=== PATIENT | female | born 1980 | race Caucasian/White ===

== ENCOUNTER → 2022-05-14 | Outpatient (CLI) | payer BC ==
[2022-05-14 15:27] VITALS: BP 147/93; PULSE 108; TEMP 98.1; BMI 43.9
--- NOTE | 2022-05-14 15:59 | P.HPBAR ---
Bariatric H&P - History & Physicial H&P Date: 05/14/22 History & Physicial: Visit/CC: new patient Patient initial contact: Initial weight: Initial weight in pounds: Height: 5 ft 6 in Initial BMI: Last weight: Current weight: 123.377 kg Current weight in pounds: 272.00 Current BMI: 43.9 [place] body weight (based on NIH guidelines): 58.967 kg Excess body weight loss: The patient is a 42 year-old F who presents for Bariatric Assessment. Patient presents for first time. Reports strong family history of morbid obesity and all her family. Mother had adjustable gastric band. She reports bilateral knee pain. Also, patient had pre-existing attempts weight loss unsuccessful. Reports constipation with protein shakes. Additionally, she does not have her gallbladder. She has severe gastroesophageal reflux disease and take medications daily. She is a sleeve gastrectomy. Recommend full bariatric workup. Past Medical History Past Medical History: Hyperlipidemia, Hypertension, Mitral Valve Prolapse (MVP) History of Any Multi-Drug Resistant Organisms: None Reported Past Surgical History: Cholecystectomy Additional Past Surgical History / Comment(s): D&C Past Anesthesia/Blood Transfusion Reactions: No Reported Reaction Past Psychological History: Anxiety Smoking Status: Former smoker Past Alcohol Use History: Rare Past Drug Use History: None Reported Surgical - Exam Vital Signs Temp Pulse BP 98.1 F 108 H 147/93 05/14/22 15:21 05/14/22 15:21 05/14/22 15:21 Bariatric Checklist Checklist: Plan: Checklist: EGD: 1. Hiatal hernia: 2. H. Pylori: HgbA1c: Vitamin D: Smoking: Primary care physician referral: Екатерина Montilla Psychiatry clearance: Cardiology clearance: Sleep study: Diet journal: VTE risk score: VTE risk level: Rehab needs at discharge:
[2022-05-14 23:02] LABS: HCT 44.7 % (37.2-46.3); HGB 15.2 g/dL (12.0-15.0); MCH 30.9 pg (27.0-32.0); MCV 90.9 fL (80.0-97.0); Mean Platelet Volume 10.2 fL (9.5-12.2); NRBC Per 100 WBC 0 /100 WBCS (0.0-0.0); Platelet Count 319 X 10*3/uL (140-440); RBC 4.92 X 10*6/uL (4.10-5.20); RDW 12.4 % (11.5-14.5); WBC 10.02 X 10*3/uL (4.50-10.00)
[2022-05-14 23:50] LABS: Chol/HDL Ratio 4.16 Ratio; LDL Cholesterol,Calculated 80.3 mg/dL (0.0-131.0)
[2022-05-15 00:26] LABS: % Iron Saturation 26.67 (12.00-45.00); ALT 31 U/L (8-44); AST 18 U/L (13-35); African American GFR (CKD) 112.2 (60.0-200.0); Albumin 4.6 g/dL (3.8-4.9); Alkaline Phosphatase 70 U/L (41-126); BUN/Creat Ratio 15.85 Ratio (12.00-20.00); Blood Urea Nitrogen 11.9 mg/dL (9.0-27.0); Calcium 9.5 mg/dL (8.7-10.3); Carbon Dioxide 22.9 mmol/L (20.0-27.5); Chloride 104 mmol/L (96-109); Glucose 106 mg/dL (70-110); Iron 86 ug/dL (50-170); Magnesium 2.2 mg/dL (1.5-2.4); Non-African American GFR(CKD) 96.8 (60.0-200.0); Phosphorus 2.8 mg/dL (2.4-5.1); Potassium 4.1 mmol/L (3.5-5.5); Sodium 139 mmol/L (135-145); Total Iron Binding Capacity 321 ug/dL (228-460); Total Protein 7.6 g/dL (6.2-8.2)
[2022-05-15 13:04] LABS: Zinc, Serum 70 ug/dL (60-130)
[2022-05-16 11:36] LABS: Vit B1(Thiamine) 85 ug/L (38-122)
[2022-05-16 11:53] LABS: Vitamin A 66 ug/dL (38-106)
== END ==
LOC: BARWHC3 14:23
PROVIDERS: ATTEND Surgery Plastic and Reconstructive Surgery
DX: E66.01 Morbid (severe) obesity due to excess calories (principal); E78.5 Hyperlipidemia, unspecified; I10 Essential (primary) hypertension; E89.1 Postprocedural hypoinsulinemia; D50.8 Other iron deficiency anemias; D50.9 Iron deficiency anemia, unspecified; E44.0 Moderate protein-calorie malnutrition; E44.1 Mild protein-calorie malnutrition; E45 Retarded development following protein-calorie malnutrition; E46 Unspecified protein-calorie malnutrition; E55.9 Vitamin D deficiency, unspecified; K74.1 Hepatic sclerosis; N19 Unspecified kidney failure; T56.894A Toxic effect of other metals, undetermined, initial encounter; I25.2 Old myocardial infarction; Z71.51 Drug abuse counseling and surveillance of drug abuser; Z87.891 Personal history of nicotine dependence; Z68.41 Body mass index [BMI] 40.0-44.9, adult
CPT/HCPCS: 84255; 84134; 84425; 80061; 80053; 82607; 82728; 82525; 82746; 83540; 83550; 83735; 84100; 84443; 84590; 84630; 85027; 82306; 80323; 83970; 83036; 80307; 99202; 93005; G0482

== ENCOUNTER → 2022-07-16 | Outpatient (CLI) | payer BC ==
[2022-07-16 16:41] VITALS: BP 140/87; PULSE 68; RESP 12; TEMP 98.7; BMI 44.4
--- NOTE | 2022-09-28 19:45 | P.BASOAP ---
Subjective Progress Note Date: 07/16/22 DATE OF SERVICE: 07/16/2022 CHIEF COMPLAINT: Morbid obesity HISTORY OF PRESENT ILLNESS: Brinda Zamudio is a 42-year-old female who comes with lifelong morbid obesity. She is undergoimg medically supervised weight loss. She has comorbidities including osteoarthritis, gastroesophageal reflux disease, and hypertensive heart disease. She completed upper endoscopy. At height of 5 feet 6 inches, her ideal body weight is 154 pounds. She comes in 275 pounds. Her body mass index highest is 44.5. She is 121 pounds overweight. PAST MEDICAL HISTORY: 1. Morbid obesity due to excess calories 2. Body mass index of 44.5 3. Osteoarthritis of the knees. 4. Osteoarthritis of the hips. 5. Osteoarthritis of the lower back. 6. Hyperlipidemia 7. Generalized anxiety disorder 8. Mitral Valve Prolapse 9. Depressive disorder 10. Hypertensive heart disease. 11. Gastroesophageal reflux disease PAST SURGICAL HISTORY: 1. Cholecystectomy 2. D&C HOME MEDICATIONS: Home Medications Medication Instructions Recorded Confirmed Loratadine [Claritin] 10 mg PO DAILY 05/14/22 09/24/22 Verapamil HCl 240 mg PO QAM 05/14/22 09/24/22 lisinopriL [Zestril] 20 mg PO QAM 05/14/22 09/24/22 Previous Rx's Medication Instructions Recorded Acetaminophen Tab [Tylenol] 1,000 mg PO Q6HR PRN #30 tablet 09/02/22 Omeprazole [PriLOSEC] 40 mg PO DAILY #30 cap 09/02/22 Ondansetron Odt [Zofran Odt] 4 mg PO Q8HR PRN #9 tab 09/02/22 Simethicone 40 mg/0.6 ml Drops 40 mg PO PCHS PRN #30 ml 09/02/22 [Mylicon Drops] bisacodyL [Dulcolax] 5 mg PO DAILY PRN #10 tab 09/02/22 SOCIAL HISTORY: No past tobacco use. FAMILY HISTORY: No family history of ulcerative colitis disease or Crohn's disease. Family history of morbid obesity. No lupus in the family. No reports of stomach or esophageal cancer. REVIEW OF ORGAN SYSTEMS: CONSTITUTIONAL: At height of 5 feet 6 inches, her ideal body weight is 154 pounds. She comes in 275 pounds. Her body mass index highest is 44.5. She is 121 pounds overweight. HEENT: Denies any active troubles with vision or hearing. No troubles with swallowing. ENDOCRINE: No diabetes. Denies hypothyroidism. CARDIOVASCULAR: No reports of palpitations or heart attacks or chest pain. Has hypertensive heart disease. RESPIRATORY: Has daytime somnolence. GI: Denies any bright red blood per rectum. No diarrhea. Has gastroesophageal reflux disease. MUSCULOSKELETAL: Has lower back pain and joint pain. Has osteoarthritis of the knees and hips. NEURO: No headaches. No seizure disorders. PSYCH: Has depression. No suicidal ideation. Has anxiety. RHEUMATOLOGIC: No lupus. No rheumatoid arthritis. HEMATOLOGIC: Denies any abnormal bleeding or bruising. No personal history of DVTs. SKIN: No rash. No skin cancer. PHYSICAL EXAM: VITAL SIGNS: Height 5 foot 6 inches, weight 275 pounds. BMI 44.5 Vital Signs Temp 98.7 F 07/16/22 16:36 Pulse 68 07/16/22 16:36 Resp 12 07/16/22 16:36 BP 140/87 07/16/22 16:36 Pulse Ox FiO2 GENERAL: Well-developed in no acute distress. HEENT: No scleral icterus. Extraocular movements grossly intact. Hears conversational speech. No nasal drainage. NECK: Supple without lymphadenopathy. CHEST: Nonlabored respirations with equal bilateral excursions. CARDIOVASCULAR: Regular rate and regular rhythm. Distal 2+ pulses. ABDOMEN: Obese, soft, nontender, nondistended. MUSCULOSKELETAL: No clubbing, cyanosis. Gross strength 5/5 distal lower extremities. NEURO: No focal or lateralizing signs. Cranial nerves 2 through 12 grossly within normal limits. PSYCH: Appropriate affect. Alert and oriented to person, place and time. SKIN: Good skin turgor. Well perfused. LABS: Reviewed. WBC elevated, leukocytosis. Triglycerides elevated. Urine drug screen negative. EKG: Abnormal for left axis deviation EGD FINDINGS: Squamocolumnar junction 35 cm from the incisors. Diaphragmatic hiatus at 37 cm. Hiatal hernia, 2 cm Hill grade 3 lower esophageal valve. LA grade B erosive esophagitis. Biopsies obtained of duodenum Chronic gastritis with biopsies obtained Moderate gastric polyps Final Pathologic Diagnosis A. DUODENUM, BIOPSY: Benign small bowel mucosa with intact villous architecture. Negative for histopathologic abnormality. B. GASTRIC ANTRUM, BIOPSY: Mild chronic gastritis. Helicobacter pylori organisms are not identified on routine H+E sections. ASSESSMENT: 1. Morbid obesity due to excess calories 2. Body mass index of 44.5 3. Osteoarthritis of the knees. 4. Osteoarthritis of the hips. 5. Osteoarthritis of the lower back. 6. Hyperlipidemia 7. Generalized anxiety disorder 8. Mitral Valve Prolapse 9. Depressive disorder 10. Hypertensive heart disease. 11. Gastroesophageal reflux disease 12. Gastric polyps 13. Diaphragmatic hiatal hernia 14. Leukocytosis 15. Hypertriglyceridemia 16. Abnormal EKG 17. Chronic gastritis PLAN: 1. She has symptomatic hiatal hernia, recommend hiatal hernia repair for gastroesophageal reflux disease prior bariatric procedure. 2. Recommend cardiac risk assessment due to hypertensive heart disease and abnormal EKG, mitral valve prolapse 3. Recommend repeat CBC for leukocytosis 4. Omeprazole for gastroesophageal reflux disease. 5. She is elevated risk of complications due to her co-morbidities. Objective - Vital Signs Vital signs: Vital Signs Temp 98.7 F 07/16/22 16:36 Pulse 68 07/16/22 16:36 Resp 12 07/16/22 16:36 BP 140/87 07/16/22 16:36 Pulse Ox FiO2 Assessment/Plan Plan: Date: 07/16/22 Initial Weight: Initial BMI: Current Weight: 124.919 kg Current BMI: 44.4 Type of Surgery: Total Volume in Band: Previous Volume: Volume Removed: Volume Added: Band Size:
== END ==
LOC: BARWHC3 15:51
PROVIDERS: ATTEND Surgery Plastic and Reconstructive Surgery
DX: E66.01 Morbid (severe) obesity due to excess calories (principal); Z68.41 Body mass index [BMI] 40.0-44.9, adult; K21.9 Gastro-esophageal reflux disease without esophagitis; I11.9 Hypertensive heart disease without heart failure; F32.A Depression, unspecified; F41.1 Generalized anxiety disorder; E78.5 Hyperlipidemia, unspecified; M17.9 Osteoarthritis of knee, unspecified; M16.9 Osteoarthritis of hip, unspecified; I34.9 Nonrheumatic mitral valve disorder, unspecified; K31.7 Polyp of stomach and duodenum; K44.9 Diaphragmatic hernia without obstruction or gangrene; E78.1 Pure hyperglyceridemia; R94.31 Abnormal electrocardiogram [ECG] [EKG]; K29.70 Gastritis, unspecified, without bleeding; Z88.1 Allergy status to other antibiotic agents; Z88.0 Allergy status to penicillin; Z88.8 Allergy status to other drugs, medicaments and biological substances
CPT/HCPCS: 99211

== ENCOUNTER → 2022-08-27 | Outpatient (CLI) | payer BC ==
[2022-08-28 02:14] LABS: Basophils # (A) 0.04 X 10*3/uL (0.00-0.10); Basophils % (A) 0.5 %; Eosinophils # (A) 0.29 X 10*3/uL (0.04-0.35); Eosinophils % (A) 3.4 %; HCT 40.2 % (37.2-46.3); HGB 13.8 d/dL (12.0-15.0); Lymphocytes # (A) 2.24 X 10*3/uL (0.90-5.00); Lymphocytes % (A) 26.5 %; MCH 31.4 pg (27.0-32.0); MCHC 34.3 d/dL (32.0-37.0); MCV 91.4 FL (80.0-97.0); Mean Platelet Volume 10.6 FL (9.5-12.2); Monocytes # (A) 0.44 X 10*3/uL (0.20-1.00); Monocytes % (A) 5.2 %; NRBC Per 100 WBC 0 X 10*3/uL (0.00-0.01); Neutrophils # (A) 5.43 X 10*3/uL (1.80-7.70); Neutrophils % (A) 64.2 %; Platelet Count 326 X 10*3/uL (140-440); RDW 12.1 % (11.5-14.5); WBC 8.46 X 10*3/uL (4.50-10.00)
[2022-08-28 03:05] LABS: ALT 36 U/L (8-44); AST 21 U/L (13-35); Albumin 4.8 d/dL (3.8-4.9); Albumin/Globulin Ratio 1.66 Ratio (1.60-3.17); Alkaline Phosphatase 55 U/L (41-126); BUN/Creat Ratio 23.62 Ratio (12.00-20.00); Blood Urea Nitrogen 18.9 mg/dL (9.0-27.0); Carbon Dioxide 21.3 mmol/L (21.6-31.8); Chloride 102 mmol/L (96-109); Globulin 2.9 d/dL (1.6-3.3); Glucose 72 mg/dL (70-110); Potassium 4.8 mmol/L (3.5-5.5); Sodium 138 mmol/L (135-145); Total Bilirubin 0.7 mg/dL (0.3-1.2); Total Protein 7.7 d/dL (6.2-8.2)
== END | disposition home or self-care (01) ==
LOC: LABPAT 16:04
PROVIDERS: ATTEND Surgery Plastic and Reconstructive Surgery
DX: Z01.812 Encounter for preprocedural laboratory examination (principal)
CPT/HCPCS: 36415; 80053; 85025; 93005

== ENCOUNTER 2022-09-01 07:50 | Observation (INO) | payer BC ==
[~2022-09-01 07:50] MED LIST: CHLORHEXIDINE GLUCONATE 15 ML CUP MUCOUS MEM PRN; PANTOPRAZOLE 40 MG/10 ML VIAL IVP PRN; ceFAZolin 3 GM in SODIUM CHLORIDE 0.9% 100 ML IVPB PRN
[2022-09-01] MEDS ORDERED: SCOPOLAMINE 1 MG/72 HR PATCH TRANSDERM ONE (08:19)
[2022-09-01] MEDS ORDERED: DEXAMETHASONE SOD PHOSPHATE 4 MG/ML 1 ML VIAL IV ONE (08:19)
[2022-09-01] MEDS ORDERED: ONDANSETRON 4 MG/2 ML VIAL IVP ONE (08:19)
[2022-09-01] MEDS ORDERED: HYDROmorphone 0.5 MG/0.5 ML SYRINGE IVP PRN (08:19)
[2022-09-01] MEDS ORDERED: MIDAZOLAM 2 MG/2 ML VIAL IV PRN (08:19)
--- NOTE | 2022-09-01 08:29 | P.GSHP ---
History of Present Illness H&P Date: 09/01/22 CHIEF COMPLAINT: Paraesophageal hiatal hernia with gastroesophageal reflux disease. HISTORY OF PRESENT ILLNESS: The patient is a 42-year-old female who presents with symptomatic paraesophageal hiatal hernia over one year with gastroesophageal reflux disease. She has completed upper endoscopy workup. Now she presents for surgical intervention. PAST MEDICAL HISTORY: Please see list. PAST SURGICAL HISTORY: Please see list. MEDICATIONS: Please see list. ALLERGIES: Please see list. SOCIAL HISTORY: No illicit drug use FAMILY HISTORY: No reports of Crohn disease or ulcerative colitis. REVIEW OF ORGAN SYSTEMS: CONSTITUTIONAL: No reports of fevers or chills. GI: Denies any blood in stools or constipation. PHYSICAL EXAM: VITAL SIGNS: Stable GENERAL: Well-developed pleasant and in no acute distress. HEENT: No scleral icterus. Extraocular movements grossly intact. Moist buccal mucosa. NECK: Supple without lymphadenopathy. CHEST: Unlabored respirations. Equal bilateral excursions. CARDIOVASCULAR: Regular rate and rhythm. Distal 2+ pulses. ABDOMEN: Soft, nondistended. No peritoneal signs. MUSCULOSKELETAL: No clubbing, cyanosis, or edema. SKIN: Well-perfused. Good skin turgor. REPORTS: Upper endoscopy demonstrates paraesophageal hiatal hernia BARIUM SWALLOW: Images reviewed demonstrating paraesophageal hiatal hernia. This is my independent interpretation. REPORTS: Cardiology risk assessment obtained. Please see chart. ASSESSMENT: 1. Diaphragmatic paraesophageal hiatal hernia with severe gastroesophageal reflux disease. PLAN: 1. Recommend proceeding with a robotic paraesophageal hiatal hernia with possible mesh. 2. Benefits and risks of surgical intervention was discussed including possibility of open technique. 3. Inpatient hospitalization recommended of 2 nights 4. DVT prophylaxis. 5. Antibiotic prophylaxis. 6. She has also completed a very low caloric high-protein diet to address underlying hepatomegaly. 7. Non narcotic pain management including abdominal wall block described 8. Blood sugar glucose described. 9. Weight loss management described. Past Medical History Past Medical History: GERD/Reflux, Hyperlipidemia, Hypertension, Mitral Valve Prolapse (MVP) Additional Past Medical History / Comment(s): hiatal hernia,gastritis,gastric polyps History of Any Multi-Drug Resistant Organisms: None Reported Past Surgical History: Cholecystectomy Additional Past Surgical History / Comment(s): D&C Past Anesthesia/Blood Transfusion Reactions: No Reported Reaction Additional Past Anesthesia/Blood Transfusion Reaction / Comment(s): no hx blood transfusion Smoking Status: Former smoker - Past Family History Mother Family Medical History: No Reported History Medications and Allergies Home Medications Medication Instructions Recorded Confirmed Type Atorvastatin [Lipitor] 20 mg PO DAILY 05/14/22 08/22/22 History Escitalopram [Lexapro] 20 mg PO QAM 05/14/22 08/22/22 History Loratadine [Claritin] 10 mg PO DAILY 05/14/22 08/22/22 History Omeprazole 20 mg PO QAM 05/14/22 08/22/22 History Verapamil HCl 240 mg PO QAM 05/14/22 08/22/22 History lisinopriL [Zestril] 20 mg PO QAM 05/14/22 08/22/22 History Cholecalciferol [Vitamin D3 (25 250 mcg PO DAILY #0 06/24/22 08/22/22 History Mcg = 1000 Iu)] Allergies Allergy/AdvReac Type Severity Reaction Status Date / Time azithromycin [From Zithromax] Allergy Rash/Hives Verified 08/22/22 15:25 erythromycin base Allergy Rash/Hives Verified 08/22/22 15:25 Penicillins Allergy Rash/Hives Verified 08/22/22 15:25 ranitidine [From Zantac] Allergy Rash/Hives Verified 08/22/22 15:25
[2022-09-01] MEDS ORDERED: HEPARIN SODIUM,PORCINE/PF 5,000 UNIT/0.5 ML SYRINGE SQ PRN (08:30)
[2022-09-01] MEDS ORDERED: ACETAMINOPHEN TAB 500 MG TAB PO STA (08:30)
[2022-09-01] MEDS ORDERED: LACTATED RINGERS 1,000 ML IV ONE ×2 (08:34→12:57)
[2022-09-01 08:58] LABS: Basophils % (A) 0 %; Eosinophils # (A) 0.2 k/uL (0-0.7); Eosinophils % (A) 4 %; HCT 39.9 % (34.0-46.0); HGB 14.2 gm/dL (11.4-16.0); Lymphocytes # (A) 1.4 k/uL (1.0-4.8); Lymphocytes % (A) 24 %; MCH 31.2 pg (25.0-35.0); MCHC 35.5 g/dL (31.0-37.0); MCV 87.9 fL (80.0-100.0); Mean Platelet Volume 8.2; Monocytes # (A) 0.3 k/uL (0-1.0); Monocytes % (A) 4 %; Neutrophils # (A) 3.8 k/uL (1.3-7.7); Neutrophils % (A) 66 %; Platelet Count 289 k/uL (150-450); RBC 4.53 m/uL (3.80-5.40); RDW 12.5 % (11.5-15.5); WBC 5.7 k/uL (3.8-10.6)
[2022-09-01 09:15] LABS: ALT 46 U/L (4-34); AST 36 U/L (14-36); African American GFR (CKD) >90 (>60 ml/min/1.73 sqM); Albumin 4.6 g/dL (3.5-5.0); Alkaline Phosphatase 58 U/L (38-126); Anion Gap 11 mmol/L; Blood Urea Nitrogen 13 mg/dL (7-17); Carbon Dioxide 23 mmol/L (22-30); Chloride 107 mmol/L (98-107); Glucose 87 mg/dL (74-99); Non-African American GFR(CKD) >90 (>60 ml/min/1.73 sqM); Sodium 141 mmol/L (137-145); Total Protein 8.1 g/dL (6.3-8.2)
[2022-09-01] MEDS ORDERED: ROCURONIUM 10 MG/ML (5 ML VIAL) IV ONE (11:05)
[2022-09-01] MEDS ORDERED: HYDROmorphone (PF) 1 MG/ML ONE (11:05)
[2022-09-01] MEDS ORDERED: GLYCOPYRROLATE 0.2 MG/ML 2 ML VIAL ONE (11:05)
[2022-09-01] MEDS ORDERED: fentaNYL (PF) 50 MCG/ML 2 ML AMP ONE (11:05)
[2022-09-01] MEDS ORDERED: NEOSTIGMINE 1 MG/ML 10 ML VIAL ONE (11:05)
[2022-09-01] MEDS ORDERED: SUCCINYLCHOLINE CHLORIDE 200 MG/10 ML VIAL IV ONE (11:05)
[2022-09-01] MEDS ORDERED: MIDAZOLAM 2 MG/2 ML VIAL ONE (11:05)
[2022-09-01] MEDS ORDERED: KETOROLAC 15 MG/ML 1 ML VIAL ONE (11:05)
[2022-09-01] MEDS ORDERED: LIDOCAINE 2% INJ 20 MG/ML (2 ML VIAL) ONE (11:05)
[2022-09-01] MEDS ORDERED: KETAMINE 10 MG/ML 20 ML VIAL ONE (11:05)
[2022-09-01] MEDS ORDERED: PROPOFOL 10 MG/ML 20 ML VIAL IV ONE (11:05)
[2022-09-01] MEDS ORDERED: BUPIVACAINE (PF) 0.25% 30 ML VIAL SQ ONE (11:41)
[2022-09-01] MEDS ORDERED: HYDROmorphone 1 MG/ML 1 ML SYRINGE IVP PRN (15:32)
[2022-09-01] MEDS ORDERED: NALOXONE 0.4 MG/ML 1 ML VIAL IV PRN (15:32)
--- NOTE | 2022-09-01 15:41 | P.OP ---
Date of Procedure: 09/01/22 Description of Procedure: SURGEON: TANVI HOLLEY MD PREOPERATIVE DIAGNOSES: 1. Symptomatic paraesophageal diaphragmatic hiatal hernia. 2. Gastroesophageal reflux disease. 3. Hypertensive heart disease 4. Generalized anxiety disorder POSTOPERATIVE DIAGNOSES: 1. Paraesophageal midline diaphragmatic hernia, 4 cm, with incarceration. 2. Gastroesophageal reflux disease. 3. Hypertensive heart disease 4. Generalized anxiety disorder OPERATION: 1. Robotic-assisted da Tay Xi laparoscopic repair of incarcerated paraesophageal hiatal hernia, 4 x 3 cm, with [place] Biopatch A 8 x 8 cm. 2. Intraoperative esophagogastroduodenoscopy 3. Placement of 56-Bengali bougie for esophageal dysmotility ANESTHESIA: General with local anesthetic. ESTIMATED BLOOD LOSS: 5 mL SPECIMENS REMOVED: None COMPLICATIONS: None. Condition: stable Disposition: floor FINDINGS: 1. Midline incarcerated paraesophageal hiatal hernia 4 x 3 cm 2. Intraoperative upper endoscopy confirms complete closure of hiatal hernia from Hill grade 3 to Hill grade 1 3. Intraesophageal length over 2 cm INDICATIONS: The patient is a 42-year-old female who presents with gastroesophageal reflux disease poorly controlled despite medications, and a symptomatic diaphragmatic hiatal hernia. Preoperative workup including upper endoscopy demonstrated a sliding hiatal hernia. The patient completed an esophageal manometry. Given the severity of symptoms, the patient had elected for surgical intervention. Benefits and risks including bleeding, infection, recurrence, dysphagia, injury to the lung, need for further surgery was described at length. Informed consent was obtained. DESCRIPTION: The patient was brought into the operating room and placed in supine position. Preoperatively the patient had received heparin subcutaneously for DVT prophylaxis. After general induction, the abdomen was prepped and draped in standard sterile fashion. The patient had previously voided prior to coming to the operating room. Ioban draping was placed along the abdomen. A timeout protocol was confirmed with the surgical team, for which the patient's name, procedure to be performed including DVT prophylaxis with bilateral SCDs, and preoperative antibiotics were also confirmed. A robotic da Tay Xi system was prepped and primed. At 12 cm from the xiphoid to just below the umbilicus, proposed port sites were marked with indelible marker along the left axillary line, left mid-clavicular line with each ports were marked 10 cm from each other. A 5 mm 0 degrees laparoscopic trocar entry was performed along the left upper quadrant. The abdomen was insufflated to 15 mmHg pressure was tolerated well. Diagnostic laparoscopy demonstrated no injury to bowel, viscera, or mesentery. No injury had occurred to the small bowel or viscera. The liver was smooth consistent with two-week high-protein low-carb diet. Previous trochar sites from cholecystectomy were used. Next, one 8 mm robotic port was placed along the right upper abdomen. An 8-mm port was were placed along the right lateral lateral abdominal wall. The camera 8-mm port was maintained along the epigastrium. Another 12 mm port was placed along the left upper abdominal wall after exchanging the 5 mm port. Please note that the ports were placed at least 20 cm away from the target anatomy. Care was taken to check that each robotic arm were safely away from collision with the bed or the patient. At the epigastrium, a medium sized Stu liver retractor was placed under direct visualization with the Iron Deaf/Hard Of Hearing Specialist placed under the right shoulder of the patient. All robotic arms were used. The patient was repositioned in reverse Trendelenburg position at 21-degrees after lowering the bed. The robot was docked above the right side of the patient. Using a grasper for arm 3, a grasper for arm 1, including vessel sealer for arm 2, the robotic system was docked and primed as described. Instruments were interchanged by the health assistant. I had sat at the console. The gastrohepatic ligament was cleaved using a vessel sealer. Next, the phrenoesophageal ligament was mobilized and the distal esophagus was mobilized circumferentially. The left and right crura was identified. Circumferentially, the hernia sac was excised and brought into the peritoneal cavity. Moderate dissection into the mediastinum was performed to release the esophagus into the abdominal cavity. The paraesophageal hiatal hernia sac was also incised and divided from the esophagus. Care was taken to avoid any gastrotomy. The measured defect was consistent with 3 cm axial length and 3 cm in width. After dissection, the distal esophagus of 2+ cm was brought into the abdominal cavity. Once the hiatus and crura was dissected, 2-0 VLOC nonabsorbable suture was placed to reapproximate the diaphragmatic hiatus posteriorly. To buttress the repair, a [place] Biopatch A was prepared along the back table and cut in half of a post-hole fashion as to reinforce the repair as an underlay. The mesh was placed along the crural repair and tagged using horizontal mattress sutures using 2-0 VLOC. I went to the head of the bed to perform intraoperative esophagogastroduodenoscopy and placement of a 56Fr bougie. The bougie was passed along the posterior oropharynx into the stomach to address pre-existing esophageal dysmotility for 2 minutes then removed. An Olympus gastroscope was passed through posterior oropharynx. Retroflexion of the scope confirmed a Hill grade 1 lower esophageal valve. The stomach had been desufflated. No evidence of leaks were found of the esophagus or stomach. The GI tract with desufflated This concluded the endoscopic portion of the case. The robot was undocked from the patient. I re-scrubbed into the case. All instruments and pneumoperitoneum and specimens were evacuated from the abdominal cavity. Incisions were reapproximated using 4-0 Monocryl in an interrupted subcuticular fashion. Liquid glue was applied to the skin. Local anesthetic was infiltrated in all wounds for postop analgesia. At the end of the procedure, needle, sponge, and instrument count was verified correct by the certified bench jeweler technician. The patient had tolerated the procedure well and was taken to the postanesthesia unit in stable condition.
[2022-09-01] MEDS ORDERED: ACETAMINOPHEN IV (For NPO) 1,000 MG in EMPTY BAG 1 BAG IVPB ONE (16:00)
[2022-09-01] MEDS: LACTATED RINGERS 1,000 ML IV SCH (17:01)
[2022-09-01] MEDS: ALBUTEROL NEBULIZED 2.5 MG/3 ML INHALATION SCH ×2 (18:11→20:43)
[2022-09-01] MEDS ORDERED: DEXAMETHASONE SOD PHOSPHATE 10 MG/ML 1 ML VIAL IVP STA (18:13)
[2022-09-01] MEDS: 0.9% NACL WITH KCL 20 MEQ/L 1,000 ML IV SCH ×2 (18:38→20:08)
[2022-09-01] MEDS: ONDANSETRON 4 MG/2 ML VIAL IVP SCH (23:11)
[2022-09-01] MEDS: ACETAMINOPHEN IV (For NPO) 1,000 MG in EMPTY BAG 1 BAG IVPB SCH (23:11)
[2022-09-01] MEDS: DEXAMETHASONE SOD PHOSPHATE 4 MG/ML 1 ML VIAL IVP SCH (23:11)
[2022-09-02] MEDS: 0.9% NACL WITH KCL 20 MEQ/L 1,000 ML IV SCH (03:43)
[2022-09-02] MEDS: ACETAMINOPHEN IV (For NPO) 1,000 MG in EMPTY BAG 1 BAG IVPB SCH ×2 (05:37→12:22)
[2022-09-02] MEDS: DEXAMETHASONE SOD PHOSPHATE 4 MG/ML 1 ML VIAL IVP SCH ×2 (05:37→12:21)
[2022-09-02] MEDS: ONDANSETRON 4 MG/2 ML VIAL IVP SCH ×2 (05:37→12:22)
[2022-09-02 06:44] LABS: African American GFR (CKD) >90 (>60 ml/min/1.73 sqM); Anion Gap 9 mmol/L; Blood Urea Nitrogen 10 mg/dL (7-17); Calcium 8.3 mg/dL (8.4-10.2); Carbon Dioxide 18 mmol/L (22-30); Chloride 109 mmol/L (98-107); Magnesium 2.1 mg/dL (1.6-2.3); Non-African American GFR(CKD) >90 (>60 ml/min/1.73 sqM); Phosphorus 3.3 mg/dL (2.5-4.5); Potassium 4.1 mmol/L (3.5-5.1); Sodium 136 mmol/L (137-145)
[2022-09-02] MEDS ORDERED: 0.9% NACL WITH KCL 20 MEQ/L 1,000 ML IV SCH (08:00)
[2022-09-02 08:39] LABS: Basophils # (A) 0.01 X 10*3/uL (0.00-0.10); Basophils % (A) 0.1 %; Eosinophils # (A) 0 X 10*3/uL (0.04-0.35); Eosinophils % (A) 0 %; HCT 34.9 % (37.2-46.3); HGB 11.9 d/dL (12.0-15.0); Lymphocytes # (A) 0.81 X 10*3/uL (0.90-5.00); Lymphocytes % (A) 9.3 %; MCH 31.5 pg (27.0-32.0); MCHC 34.1 d/dL (32.0-37.0); MCV 92.3 FL (80.0-97.0); Mean Platelet Volume 10.6 FL (9.5-12.2); Monocytes # (A) 0.24 X 10*3/uL (0.20-1.00); Monocytes % (A) 2.8 %; NRBC Per 100 WBC 0 X 10*3/uL (0.00-0.01); Neutrophils # (A) 7.59 X 10*3/uL (1.80-7.70); Neutrophils % (A) 87.5 %; Platelet Count 256 X 10*3/uL (140-440); RBC 3.78 X 10*6/uL (4.10-5.20); RDW 12.2 % (11.5-14.5); WBC 8.68 X 10*3/uL (4.50-10.00)
[2022-09-02] MEDS ORDERED: VERAPAMIL SR 240 MG TABLET.ER PO SCH (09:00)
[2022-09-02] MEDS: ALBUTEROL NEBULIZED 2.5 MG/3 ML INHALATION SCH ×3 (09:00→16:17)
[2022-09-02] MEDS ORDERED: PANTOPRAZOLE 40 MG/10 ML VIAL IV SCH (09:00)
[2022-09-02] MEDS ORDERED: ENOXAPARIN 40 MG/0.4 ML SYRINGE SQ SCH (09:00)
[2022-09-02] MEDS ORDERED: lisinopriL 20 MG TAB PO SCH (09:00)
--- NOTE | 2022-09-02 09:16 | FL ---
EXAMINATION TYPE: FL UGI DATE OF EXAM: 09/02/2022 8:52 AM CLINICAL INDICATION:Female, 42 years old with history of Post Op Bariatric Surgery; COMPARISON: 04/04/2012 TECHNIQUE: Limited single contrast UGI study is performed with Isovue-370. A total of 12 seconds of f luoroscopic time was utilized during procedure and 6 images obtained. DAP: 598.90 mGym2 FINDINGS: The stomach demonstrates a postsurgical morphology. No extravasation of contrast identifie d. No evidence of mass or ulcer disease. Free flow of contrast through the gastroesophageal junction. IMPRESSION: Postsurgical changes without evidence of contrast extravasation.
[2022-09-02 12:34] VITALS: BMI 41.8
[2022-09-02] MEDS: LACTATED RINGERS 1,000 ML IV SCH (13:38)
--- NOTE | 2022-09-02 14:44 | P.DS ---
Providers Date of admission: 09/01/22 12:53 Expected date of discharge: 09/02/22 Attending physician: Jodie Dickson Primary care physician: Braden Fitch [facility] Course: Discharge diagnosis 1. Paraesophageal midline diaphragmatic hernia, 4 cm, with incarceration. 2. Gastroesophageal reflux disease. 3. Hypertensive heart disease 4. Generalized anxiety disorder Hospital course This is a 42-year-old female with GERD and symptomatic diaphragmatic hiatal hernia. She is status post Robotic-assisted da Tay Xi laparoscopic repair of incarcerated paraesophageal hiatal hernia. Upper GI shows no evidence of leak or obstruction. Patient is tolerating diet. Her pain is controlled. She is having flatus. She denies any difficulty urinating. She's afebrile. She has been up and ambulating. She is stable for discharge. Physician Emu Farmer note has been reviewed by physician. Signing provider agrees with the documented findings, assessment, and plan of care. Patient Condition at Discharge: Stable Plan - Discharge Summary Discharge Rx Participant: No New Discharge Prescriptions: New Omeprazole [PriLOSEC] 40 mg PO DAILY #30 cap bisacodyL [Dulcolax] 5 mg PO DAILY PRN #10 tab PRN Reason: Constipation Simethicone 40 mg/0.6 ml Drops [Mylicon Drops] 40 mg PO PCHS PRN #30 ml PRN Reason: Gas Ondansetron Odt [Zofran Odt] 4 mg PO Q8HR PRN #9 tab PRN Reason: Nausea Acetaminophen Tab [Tylenol] 1,000 mg PO Q6HR PRN #30 tablet PRN Reason: Pain Continue Loratadine [Claritin] 10 mg PO DAILY lisinopriL [Zestril] 20 mg PO QAM Verapamil HCl 240 mg PO QAM Discontinued Escitalopram [Lexapro] 20 mg PO QAM Atorvastatin [Lipitor] 20 mg PO DAILY Omeprazole 20 mg PO QAM Cholecalciferol [Vitamin D3 (25 Mcg = 1000 Iu)] 250 mcg PO DAILY #0 Discharge Medication List Loratadine [Claritin] 10 mg PO DAILY 05/14/22 [History] Verapamil HCl 240 mg PO QAM 05/14/22 [History] lisinopriL [Zestril] 20 mg PO QAM 05/14/22 [History] Acetaminophen Tab [Tylenol] 1,000 mg PO Q6HR PRN #30 tablet 09/02/22 [Rx] Omeprazole [PriLOSEC] 40 mg PO DAILY #30 cap 09/02/22 [Rx] Ondansetron Odt [Zofran Odt] 4 mg PO Q8HR PRN #9 tab 09/02/22 [Rx] Simethicone 40 mg/0.6 ml Drops [Mylicon Drops] 40 mg PO PCHS PRN #30 ml 09/02/22 [Rx] bisacodyL [Dulcolax] 5 mg PO DAILY PRN #10 tab 09/02/22 [Rx] Follow up [facility]ment(s[facility] [place] [facility] [place] [facility]05[facility]22 9:00 am Activity/Diet/Wound Care/Special Instructions: Liquid diet only for 2 weeks No lifting over 4 pounds in 4 weeks May Shower. No soaking in bath tubs for 2 weeks Please notify your surgeon if you develop nausea and vomiting including new onset of abdominal pain. Continue to use incentive spirometry to prevent pneumonias. Please continue to ambulate at home to prevent blood clots in legs. Follow-up at the bariatric center. May shower. Dressings to be discontinued by surgeon in the office. Drink 64 oz of fluid daily. Start protein shakes on . Notify bariatric center for temp over 101.0, increased pain, drainage from incisions. No straws or carbonated beverages. Liquid diet only. Sugar content should be less than 6 g to avoid dumping syndrome. Take MOM for constipation. CRUSH, OPEN, OR CUT TABLETS LARGER THAN A SIZE OF A TIC TAC Do not take vitamins, Lipitor or Lexapro due to increase risks of bleeding with these medications until seen by surgeon Discharge Disposition: HOME SELF-CARE
[2022-09-02 15:37] VITALS: BP 101/68; PULSE 59; RESP 17; TEMP 98.5
== END 2022-09-02 16:17 | disposition home or self-care (01) ==
LOC: OR 07:50 → 4SSUR 12:53 → OR 12:53 → 4SSUR 13:03
PROVIDERS: ADMIT Surgery Plastic and Reconstructive Surgery; ATTEND Surgery Plastic and Reconstructive Surgery
DX: K44.0 Diaphragmatic hernia with obstruction, without gangrene (principal); K22.4 Dyskinesia of esophagus; K21.9 Gastro-esophageal reflux disease without esophagitis; I11.9 Hypertensive heart disease without heart failure; F41.1 Generalized anxiety disorder; E78.5 Hyperlipidemia, unspecified; I34.1 Nonrheumatic mitral (valve) prolapse; I49.9 Cardiac arrhythmia, unspecified; Z79.899 Other long term (current) drug therapy; Z88.0 Allergy status to penicillin; Z88.1 Allergy status to other antibiotic agents; Z88.8 Allergy status to other drugs, medicaments and biological substances; Z87.19 Personal history of other diseases of the digestive system; Z90.49 Acquired absence of other specified parts of digestive tract; Z98.890 Other specified postprocedural states; Z87.891 Personal history of nicotine dependence
CPT/HCPCS: 43282; S2900; 74240; 80051; 80053; 81025; 82310; 82565; 83735; 84100; 84520; 85025; 94640; 94760

== ENCOUNTER → 2022-11-26 | Outpatient (CLI) | payer BC ==
[2022-11-26 20:42] LABS: Basophils # (A) 0.03 X 10*3/uL (0.00-0.10); Basophils % (A) 0.4 %; Eosinophils # (A) 0.18 X 10*3/uL (0.04-0.35); Eosinophils % (A) 2.2 %; HCT 41.1 % (37.2-46.3); HGB 14.2 d/dL (12.0-15.0); Lymphocytes # (A) 1.82 X 10*3/uL (0.90-5.00); MCH 31.3 pg (27.0-32.0); MCHC 34.5 d/dL (32.0-37.0); MCV 90.5 FL (80.0-97.0); Monocytes # (A) 0.42 X 10*3/uL (0.20-1.00); Monocytes % (A) 5.1 %; NRBC Per 100 WBC 0 X 10*3/uL (0.00-0.01); Neutrophils # (A) 5.79 X 10*3/uL (1.80-7.70); Neutrophils % (A) 69.9 %; Platelet Count 279 X 10*3/uL (140-440); RBC 4.54 X 10*6/uL (4.10-5.20); RDW 12.1 % (11.5-14.5); WBC 8.27 X 10*3/uL (4.50-10.00)
[2022-11-27 04:23] LABS: ALT 26 U/L (8-44); AST 15 U/L (13-35); Albumin 4.8 d/dL (3.8-4.9); Albumin/Globulin Ratio 1.71 Ratio (1.60-3.17); Alkaline Phosphatase 49 U/L (41-126); BUN/Creat Ratio 20.29 Ratio (12.00-20.00); Blood Urea Nitrogen 14.2 mg/dL (9.0-27.0); Calcium 10.4 mg/dL (8.7-10.3); Carbon Dioxide 23.9 mmol/L (21.6-31.8); Chloride 104 mmol/L (96-109); Globulin 2.8 d/dL (1.6-3.3); Glucose 86 mg/dL (70-110); Potassium 4.3 mmol/L (3.5-5.5); Sodium 141 mmol/L (135-145); Total Bilirubin 0.7 mg/dL (0.3-1.2); Total Protein 7.6 d/dL (6.2-8.2)
== END | disposition home or self-care (01) ==
LOC: LABPAT 14:50
PROVIDERS: ATTEND Surgery Plastic and Reconstructive Surgery
DX: Z01.812 Encounter for preprocedural laboratory examination (principal)
CPT/HCPCS: 80053; 84443; 85025; 86850; 86900; 86901

== ENCOUNTER 2022-12-01 14:43 | Day surgery (SDC) | payer BC ==
--- NOTE | 2022-12-01 08:32 | P.GSHP ---
History of Present Illness H&P Date: 12/01/22 CHIEF COMPLAINT: Morbid obesity HISTORY OF PRESENT ILLNESS: Brinda Zamudio is a 42-year-old female who comes with lifelong morbid obesity. As result of morbid obesity, she has developed , osteoarthritis of the hips and knees. She has completed medical supervised weight loss. She completed medical assessment. She has completed psychological risk assessment. All surgical options were reviewed. She elected for sleeve gastrectomy. At height of 5 feet 6 inches, her ideal body weight is 154 pounds. She comes in 225 pounds. Her body mass index is 36.3. She is 71 pounds overweight. PAST MEDICAL HISTORY: 1. Morbid obesity due to excess calories 2. Body mass index of 36.3 3. Osteoarthritis of the knees. 4. Osteoarthritis of the lower back. PAST SURGICAL HISTORY: See list and reviewed HOME MEDICATIONS: See list and reviewed ALLERGIES: See list and reviewed SOCIAL HISTORY: See list and reviewed FAMILY HISTORY: No family history of ulcerative colitis disease or Crohn's disease. Family history of morbid obesity. No lupus in the family. No reports of stomach or esophageal cancer. REVIEW OF ORGAN SYSTEMS: CONSTITUTIONAL: At height of 5 feet 6 inches, her ideal body weight is 154 pounds. She comes in 225 pounds. Her body mass index is 36.3. She is 71 pounds overweight. HEENT: Denies any active troubles with vision or hearing. ENDOCRINE: Has diabetes. Has hypothyroidism. CARDIOVASCULAR: Past reports of palpitations or heart attacks or chest pain. RESPIRATORY: Has daytime somnolence. GASTROINTESTINAL: Denies any bright red blood per rectum. Has gastroesophageal reflux disease. MUSCULOSKELETAL: Has lower back pain and joint pain. Has osteoarthritis of the knees. NEURO: No headaches. No seizure disorders. PSYCH: Has depression. No suicidal ideation. RHEUMATOLOGIC: No lupus. No rheumatoid arthritis. HEMATOLOGIC: Denies any abnormal bleeding or bruising. No personal history of DVTs. SKIN: Has rash. No skin cancer. PHYSICAL EXAM: VITAL SIGNS: Height 5 foot 6 inches, weight 225 pounds. BMI 36.3 GENERAL: Well-developed in no acute distress. HEENT: No scleral icterus. Extraocular movements grossly intact. Hears conversational speech. No nasal drainage. NECK: Supple without lymphadenopathy. CHEST: Nonlabored respirations with equal bilateral excursions. CARDIOVASCULAR: Regular rate and regular rhythm. Distal 2+ pulses. ABDOMEN: Obese, soft, nontender, nondistended. MUSCULOSKELETAL: No clubbing, cyanosis. NEURO: No focal or lateralizing signs. Cranial nerves 2 through 12 grossly within normal limits. PSYCH: Appropriate affect. Alert and oriented to person, place and time. SKIN: Good skin turgor. Well perfused. ASSESSMENT: 1. Morbid obesity due to excess calories 2. Body mass index of 36.3 3. Osteoarthritis of the knees. 4. Osteoarthritis of the lower back. PLAN: 1. Bariatric options between a sleeve, band and a Marcial-en-Y gastric bypass were reviewed in detail. The patient elected for a sleeve gastrectomy. Robotic assisted approach described. 2. The [place] [facility] Data was also reviewed with benefits and risks as described. 3. An 8 page second-generation bariatric consent form was reviewed in detail including potential of bleeding, infection, leaks, adequate weight loss, nutritional deficiencies which the patient demonstrated understanding of the risks. 4. A 2 week high-protein low caloric 800 kcal diet described to address hepatomegaly. 5. Preoperative labs including complete metabolic panel and CBC with type and screen recommended. 6. DVT prophylaxis per [place] [facility]. 7. Antibiotic prophylaxis. 8. Inpatient hospitalization anticipated for more than 2 nights. 9. All questions and concerns were addressed with the patient. 10. Overall, patient has expressed understanding of bariatric care including postoperative diet and commitment of lifestyle. Patient should benefit from surgical intervention for correction of her morbid obesity. Past Medical History Past Medical History: GERD/Reflux, Hyperlipidemia, Hypertension, Mitral Valve Prolapse (MVP) Additional Past Medical History / Comment(s): gastritis,gastric polyps History of Any Multi-Drug Resistant Organisms: None Reported Past Surgical History: Cholecystectomy, Hernia Repair Additional Past Surgical History / Comment(s): D&C, EGD Past Anesthesia/Blood Transfusion Reactions: No Reported Reaction Additional Past Anesthesia/Blood Transfusion Reaction / Comment(s): no hx blood transfusion Smoking Status: Former smoker - Past Family History Mother Family Medical History: No Reported History Father Family Medical History: Cancer Medications and Allergies Home Medications Medication Instructions Recorded Confirmed Type Loratadine [Claritin] 10 mg PO DAILY 05/14/22 11/25/22 History Verapamil HCl 240 mg PO QAM 05/14/22 11/25/22 History lisinopriL [Zestril] 20 mg PO QAM 05/14/22 11/25/22 History Atorvastatin [Lipitor] 20 mg PO DAILY 11/25/22 11/25/22 History Escitalopram [Lexapro] 20 mg PO DAILY 11/25/22 11/25/22 History Allergies Allergy/AdvReac Type Severity Reaction Status Date / Time azithromycin [From Zithromax] Allergy Rash/Hives Verified 11/25/22 08:22 erythromycin base Allergy Rash/Hives Verified 11/25/22 08:22 Penicillins Allergy Rash/Hives Verified 11/25/22 08:22 ranitidine [From Zantac] Allergy Rash/Hives Verified 11/25/22 08:22
[~2022-12-01 14:43] MED LIST changes: +ACETAMINOPHEN TAB 500 MG TAB PO PRN; +ALVIMOPAN 12 MG CAPSULE PO PRN; +DEXAMETHASONE SOD PHOSPHATE 4 MG/ML 1 ML VIAL IV ONE; +ENOXAPARIN 40 MG/0.4 ML SYRINGE SQ PRN; +HYDROmorphone 0.5 MG/0.5 ML SYRINGE IVP PRN; +LIDOCAINE 1% (10MG/ML) FOR IV START INTRADERMA PRN; +METOCLOPRAMIDE 5 MG/ML 2 ML VIAL IVP PRN; +ONDANSETRON 4 MG/2 ML VIAL IVP ONE; +ONDANSETRON 4 MG/2 ML VIAL IVP PRN; +SCOPOLAMINE 1 MG/72 HR PATCH TRANSDERM STA; -ceFAZolin 3 GM in SODIUM CHLORIDE 0.9% 100 ML IVPB PRN; +droPERidol 5 MG/2 ML VIAL IVP ONE
[2022-12-01] MEDS: LACTATED RINGERS 1,000 ML IV SCH (15:21)
[2022-12-01] MEDS ORDERED: fentaNYL (PF) 50 MCG/ML 2 ML AMP ONE (16:50)
[2022-12-01] MEDS ORDERED: MIDAZOLAM 2 MG/2 ML VIAL ONE (16:50)
[2022-12-01] MEDS ORDERED: PROPOFOL 10 MG/ML 20 ML VIAL IV ONE (16:50)
[2022-12-01] MEDS ORDERED: ROCURONIUM 10 MG/ML (5 ML VIAL) IV ONE (16:50)
[2022-12-01] MEDS ORDERED: SUCCINYLCHOLINE CHLORIDE 200 MG/10 ML VIAL IV ONE (16:50)
[2022-12-01] MEDS ORDERED: NEOSTIGMINE 1 MG/ML 10 ML VIAL ONE (16:50)
[2022-12-01] MEDS ORDERED: GLYCOPYRROLATE 0.2 MG/ML 2 ML VIAL ONE (16:50)
[2022-12-01] MEDS ORDERED: KETAMINE HCL IN 0.9 % NACL 50 MG/5 ML SYRINGE ONE (16:50)
[2022-12-01] MEDS ORDERED: LIDOCAINE 1% INJ 10MG/ML (20 ML MDV) ONE (16:50)
[2022-12-01] MEDS ORDERED: LIDOCAINE 1%-EPI 1:100,000 50 ML VIAL SQ ONE (17:24)
[2022-12-01] MEDS ORDERED: SODIUM CHLORIDE 0.9% 2,000 ML IV ONE (18:45)
[2022-12-01] MEDS ORDERED: NALOXONE 0.4 MG/ML 1 ML VIAL IV PRN ×2 (18:45→18:52)
[2022-12-01] MEDS ORDERED: diphenhydrAMINE 50 MG/ML 1 ML VIAL IVP PRN (18:46)
--- NOTE | 2022-12-01 18:51 | P.OP ---
Date of Procedure: 12/01/22 Description of Procedure: SURGEON: TANVI HOLLEY MD PREOPERATIVE DIAGNOSES: 1. Morbid obesity due to excess calories 2. Body mass index of 35.9 3. Osteoarthritis of the knees. 4. Osteoarthritis of the lower back. 5. Gastroesophageal reflux disease 6. Hypertensive heart disease POSTOPERATIVE DIAGNOSES: 1. Morbid obesity due to excess calories 2. Body mass index of 35.9 3. Osteoarthritis of the knees. 4. Osteoarthritis of the lower back. 5. Gastroesophageal reflux disease 6. Hypertensive heart disease OPERATION: 1. Robotic assisted daVinci Xi laparoscopic sleeve gastrectomy multiport. 2. Intraoperative esophagogastroduodenoscopy. ANESTHESIA: Gen. local anesthetic ESTIMATED BLOOD LOSS: 10 mL SPECIMENS REMOVED: Sleeve gastrectomy COMPLICATIONS: None. FINDINGS: 1. Negative intraoperative esophagogastrojejunoscopy leak test. 2. No hepatomegaly and no large hiatus hernia. 3. Total of 7 staplers used including 2 - 60 mm black robot marybel and 5 - 60 mm blue robot loads used to create the gastric sleeve. 4. Sleeve gastrectomy, 34 x 5 cm 5. No recurrent diaphragmatic hiatal hernia INDICATIONS: Brinda Zamudio is a 42-year-old female who comes with lifelong morbid obesity. As result of morbid obesity, she has developed , osteoarthritis of the hips and knees. She has completed medical supervised weight loss. She completed medical assessment. She has completed psychological risk assessment. All surgical options were reviewed. She elected for sleeve gastrectomy. At height of 5 feet 6 inches, her ideal body weight is 154 pounds. She comes in 225 pounds. Her body mass index is 36.3. She is 71 pounds overweight. All surgical options for morbid obesity had been described using the [place] [facility] comorbidity resolution including complication risk score. A second-generation bariatric consent form was described in detail including the possibility of protein malnutrition, leaks, gastric stricture, venous thrombosis, gastroesophageal reflux disease, need for further surgery for which she demonstrated understanding. Benefits and risks of the procedure were described at length. Informed consent was obtained. DESCRIPTION: The patient was brought into the operating room theater. Preoperatively she had received Lovenox subcutaneously for DVT prophylaxis. Additionally she had Peridex oral solution as an oral decontaminant. After general induction, the abdomen was prepped and draped in standard sterile fashion. An Ioban draping was placed along the abdomen. A robotic da Tay Xi system was prepped and primed. At 15 cm from the xiphoid, proposed port sites were marked with indelible marker along the anterior axillary line bilaterally, mid axillary line bilaterally with each ports were marked 10 to 15 cm from each other. The robotic stapler port was marked for the right midclavicular line. A 5 mm 0 degrees laparoscopic trocar entry was performed along the left upper quadrant. The abdomen was insufflated to 15 mmHg pressure was tolerated well. Diagnostic laparoscopy demonstrated no injury to bowel, viscera, or mesentery. No evidence of large hiatus hernia was identified. The liver edge was sharp consistent with 2 week low-carb high-protein diet. No recurrent diaphragmatic hiatal hernia. A 8 mm port was placed along the left upper abdominal wall after exchanging the 5 mm port. A separate 8 mm port was placed along the left lateral abdominal wall. Please note that the ports were placed at least 20 cm away from the target anatomy. Care was taken to check each robotic arms were safely away from collision with the bed or the patient. At the epigastrium, a medium sized Stu liver retractor was placed under direct visualization with the Iron Marina Porter placed under the right shoulder of the patient. Next, 12-mm robot stapler port was placed along the right upper quadr ant. The camera 8-mm port was maintained along the epigastrium. The patient was repositioned in reverse Trendelenburg position at 21-degrees after lowering the bed. The robot was docked along the left side of the patient. Using a grasper for arm 4, a vessel sealer for arm 3, including grasper for arm 1, the robotic system was docked and primed as described. Instruments were interchanged by the senior office support assistant sosa for stapler loads. The camera was placed at 30- degrees down. I had sat at the console. The pylorus was identified and 6 cm proximally along the greater curvature of the stomach, the short gastrics were mobilized upwards to the angle of His using a vessel sealer. Hemostasis was excellent during this portion of the procedure. Next, the upper pole of the stomach was adherent to the left lou, which was gently dissected free using atraumatic grasper. I went to the head of the bed and placed 40-Romanian blunt bougie into the stomach. The bougie was readjusted by the nurse beverage manager. Robotic stapler black load 60 mm 2 followed by blue 60 mm x 5 loads were used to create the sleeve. Initial firing was across the antrum of the stomach towards the angle of His. The staple line was linear without corkscrewing. The space from the angularis incisura of the sleeve was approximately 4 cm. I then went to the head of the bed to perform the intraoperative esophagogastroduodenoscopy leak test. The bougie was withdrawn. The upper pole of the stomach was bathed using normal saline solution. The scope was withdrawn with careful inspection along the staple line for which no leaks were found along the entire length. Additionally,the sleeve was completely hemostatic without any encroachment along the angularis incisura. Its topology was a soft "J". No stricture was encountered upon placement of the scope. The GI tract was desufflated. The patient tolerated this portion of the procedure well. The scope was completely withdrawn. The robot was undocked. I then rescrubbed into case, whereby the irrigation fluid was aspirated from the abdominal cavity. Tisseel fibrin sealant was placed along the entire staple length. Once dried the Stu liver retractor was removed. Attention was now brought to removal of the specimen. The distal end of the sleeve gastrectomy specimen was brought out through the 12 mm port at the left upper quadrant. The specimen was gently removed en total. No contamination had occurred during this process. All instruments and pneumoperitoneum including irrigation fluid was removed from the abdominal cavity. The 12 mm port site was closed using 0-Vicryl and Seven Kothari and irrigated with diluted hydrogen peroxide. The final incisions were closed using subcuticular interrupted suture of 4-0 Monocryl. Exofin was applied to the skin once the skin had been cleansed. OptiFoam dressing was placed along the stomach extraction site. The sleeve specimen was measured and checked also for leaks which none were found. At the end of the procedure, needle, sponge, and instrument count was verified correct by the medical surgical tech. The patient was taken to the postanesthesia care unit in stable condition. She had tolerated the procedure well. Intraoperative films and findings were reviewed with the patient's family.
[2022-12-01] MEDS ORDERED: HYDROmorphone 0.5 MG/0.5 ML SYRINGE IVP ONE ×3 (19:06→20:37)
[2022-12-01] MEDS ORDERED: ONDANSETRON 4 MG/2 ML VIAL IVP ONE (19:23)
[2022-12-01] MEDS ORDERED: droPERidol 5 MG/2 ML VIAL IVP ONE (19:43)
[2022-12-01] MEDS ORDERED: LACTATED RINGERS 1,000 ML IV ONE (19:46)
[2022-12-01] MEDS ORDERED: SCOPOLAMINE 1 MG/72 HR PATCH TRANSDERM ONE (20:35)
[2022-12-01] MEDS ORDERED: fentaNYL PCA 500 MCG/50 ML BAG IV PRN (21:00)
[2022-12-01] MEDS: ALBUTEROL NEBULIZED 2.5 MG/3 ML INHALATION SCH (21:49)
[2022-12-01] MEDS: PANTOPRAZOLE 40 MG/10 ML VIAL IV SCH (23:06)
[2022-12-01] MEDS: 0.9% NACL WITH KCL 20 MEQ/L 1,000 ML IV SCH (23:07)
[2022-12-01] MEDS: ACETAMINOPHEN IV (For NPO) 1,000 MG in EMPTY BAG 1 BAG IVPB SCH (23:16)
[2022-12-02] MEDS: DEXAMETHASONE SOD PHOSPHATE 4 MG/ML 1 ML VIAL IVP SCH ×3 (00:42→11:28)
[2022-12-02] MEDS: ONDANSETRON 4 MG/2 ML VIAL IVP SCH ×3 (00:42→09:28)
[2022-12-02] MEDS: HYOSCYAMINE ORAL DROPS 1.875 MG/15 ML BOTTLE PO SCH ×3 (00:43→11:37)
[2022-12-02] MEDS: SIMETHICONE 80 MG CHEWABLE PO SCH ×3 (00:43→11:29)
[2022-12-02] MEDS: HYDROmorphone 1 MG/ML 1 ML SYRINGE IVP PRN ×3 (00:46→09:56)
[2022-12-02] MEDS: ACETAMINOPHEN IV (For NPO) 1,000 MG in EMPTY BAG 1 BAG IVPB SCH ×3 (04:05→17:03)
[2022-12-02] MEDS: 0.9% NACL WITH KCL 20 MEQ/L 1,000 ML IV SCH (04:32)
[2022-12-02 07:55] VITALS: RESP 16
[2022-12-02] MEDS ORDERED: 0.9% NACL WITH KCL 20 MEQ/L 1,000 ML IV SCH (08:00)
[2022-12-02] MEDS ORDERED: VERAPAMIL SR 240 MG TABLET.ER PO SCH (09:00)
[2022-12-02] MEDS ORDERED: lisinopriL 20 MG TAB PO SCH (09:00)
[2022-12-02] MEDS ORDERED: ENOXAPARIN 40 MG/0.4 ML SYRINGE SQ SCH (09:00)
[2022-12-02] MEDS: PANTOPRAZOLE 40 MG/10 ML VIAL IV SCH (09:52)
--- NOTE | 2022-12-02 09:58 | FL ---
EXAMINATION TYPE: FL UGI DATE OF EXAM: 12/02/2022 COMPARISON: Upper GI 09/02/2022 HISTORY: Recent gastric sleeve with previous hiatal hernia repair. TECHNIQUE: A single contrast UGI study is performed. A total of 5 seconds of fluoroscopic time was utilized during procedure and 138 images obtained. Total dose area product (DAP) in uGy*m?, mGy*cm? ( or similar): 5834.81. FINDINGS: Contrast passes from esophagus into the stomach. Mild tertiary contractions identified in the distal esophagus. No evidence of hiatal hernia or stricture noted. Postsurgical changes from hiatal hernia r epair. Postsurgical changes from gastric sleeve. No evidence for obstruction or leak. Contrast easily passes into the proximal duodenum. IMPRESSION: Postsurgical changes from gastric sleeve without evidence for leak or obstruction.
[2022-12-02 11:04] LABS: Basophils # (A) 0 X 10*3/uL (0.00-0.10); Basophils % (A) 0 %; Eosinophils # (A) 0 X 10*3/uL (0.04-0.35); Eosinophils % (A) 0 %; HCT 36.1 % (37.2-46.3); HGB 12.7 d/dL (12.0-15.0); Lymphocytes # (A) 0.48 X 10*3/uL (0.90-5.00); Lymphocytes % (A) 4.5 %; MCH 31.4 pg (27.0-32.0); MCHC 35.2 d/dL (32.0-37.0); MCV 89.1 FL (80.0-97.0); Mean Platelet Volume 10.4 FL (9.5-12.2); Monocytes # (A) 0.21 X 10*3/uL (0.20-1.00); NRBC Per 100 WBC 0 X 10*3/uL (0.00-0.01); Neutrophils # (A) 9.95 X 10*3/uL (1.80-7.70); Platelet Count 269 X 10*3/uL (140-440); RBC 4.05 X 10*6/uL (4.10-5.20); RDW 11.9 % (11.5-14.5); WBC 10.69 X 10*3/uL (4.50-10.00)
[2022-12-02 11:19] LABS: Blood Urea Nitrogen 9.7 mg/dL (9.0-27.0); Carbon Dioxide 20.3 mmol/L (21.6-31.8); Chloride 104 mmol/L (96-109); Magnesium 1.9 mg/dL (1.5-2.4); Phosphorus 3.5 mg/dL (2.4-5.1); Potassium 4.6 mmol/L (3.5-5.5); Sodium 138 mmol/L (135-145)
[2022-12-02] MEDS: LACTATED RINGERS 1,000 ML IV SCH (11:37)
[2022-12-02] MEDS: ALBUTEROL NEBULIZED 2.5 MG/3 ML INHALATION SCH ×3 (12:53→16:52)
[2022-12-02 13:41] VITALS: BMI 35.9
[2022-12-02 15:58] VITALS: BP 122/76; PULSE 72; TEMP 98.1
--- NOTE | 2022-12-02 16:18 | P.DS ---
Providers Expected date of discharge: 12/02/22 Attending physician: Jodie Dickson Primary care physician: Stated None Hospital Course: Discharge diagnosis 1. Morbid obesity due to excess calories 2. Body mass index of 35.9 3. Osteoarthritis of the knees. 4. Osteoarthritis of the lower back. 5. Gastroesophageal reflux disease 6. Hypertensive heart disease Hospital course This is a 42-year-old female with history of morbid obesity. She is status post Robotic assisted daVinci Xi laparoscopic sleeve gastrectomy. Patient's pain is controlled. She is tolerating diet. She has been up and ambulating. Upper GI shows no evidence of leak or obstruction. She is afebrile. She is stable for discharge. Please refer to chart for any further details. Physician Public Housing Manager note has been reviewed by physician. Signing provider agrees with the documented findings, assessment, and plan of care. Patient Condition at Discharge: Stable Plan - Discharge Summary Discharge Rx Participant: No New Discharge Prescriptions: New bisacodyL [Dulcolax] 5 mg PO DAILY PRN #10 tab PRN Reason: Constipation Simethicone 40 mg/0.6 ml Drops [Mylicon Drops] 40 mg PO PCHS PRN #30 ml PRN Reason: Gas Ondansetron Odt [Zofran Odt] 4 mg PO Q8HR PRN #9 tab PRN Reason: Nausea Acetaminophen Tab [Tylenol] 1,000 mg PO Q6HR PRN #30 tablet PRN Reason: Pain Omeprazole [PriLOSEC] 40 mg PO DAILY #30 cap Continue Loratadine [Claritin] 10 mg PO DAILY lisinopriL [Zestril] 20 mg PO QAM Verapamil HCl 240 mg PO QAM Discontinued Escitalopram [Lexapro] 20 mg PO DAILY Atorvastatin [Lipitor] 20 mg PO DAILY Discharge Medication List Loratadine [Claritin] 10 mg PO DAILY 05/14/22 [History] Verapamil HCl 240 mg PO QAM 05/14/22 [History] lisinopriL [Zestril] 20 mg PO QAM 05/14/22 [History] Acetaminophen Tab [Tylenol] 1,000 mg PO Q6HR PRN #30 tablet 12/02/22 [Rx] Omeprazole [PriLOSEC] 40 mg PO DAILY #30 cap 12/02/22 [Rx] Ondansetron Odt [Zofran Odt] 4 mg PO Q8HR PRN #9 tab 12/02/22 [Rx] Simethicone 40 mg/0.6 ml Drops [Mylicon Drops] 40 mg PO PCHS PRN #30 ml 12/02/22 [Rx] bisacodyL [Dulcolax] 5 mg PO DAILY PRN #10 tab 12/02/22 [Rx] [facility]Ref[place] [facility] [facility] [place] Activity/Diet/Wound Care/Special Instructions: Liquid diet only for 2 weeks No lifting over 4 pounds in 4 weeks May Shower. No soaking in bath tubs 2 weeks Please notify your surgeon if you develop nausea and vomiting including new onset of abdominal pain. Continue to use incentive spirometry to prevent pneumonias. Please continue to ambulate at home to prevent blood clots in legs. Follow-up at the bariatric center. May shower. Dressings to be discontinued by surgeon in the office. Drink 64 oz of fluid daily. Start protein shakes on . Notify bariatric center for temp over 101.0, increased pain, drainage from incisions. No straws or carbonated beverages. Liquid diet only. Sugar content should be less than 6 g to avoid dumping syndrome. Take MOM for constipation. CRUSH, OPEN, OR CUT TABLETS LARGER THAN A SIZE OF A TIC TAC Do not take Lipitor or Lexapro due to increase bleeding risk with these medications Discharge Disposition: HOME SELF-CARE
== END 2022-12-02 16:57 | disposition home or self-care (01) ==
LOC: OR 14:43 → 4SSUR 20:46 → OR 12-02 16:57
PROVIDERS: ATTEND Surgery Plastic and Reconstructive Surgery
DX: E66.01 Morbid (severe) obesity due to excess calories (principal); M17.0 Bilateral primary osteoarthritis of knee; M16.0 Bilateral primary osteoarthritis of hip; K21.9 Gastro-esophageal reflux disease without esophagitis; I11.9 Hypertensive heart disease without heart failure; I34.1 Nonrheumatic mitral (valve) prolapse; E78.5 Hyperlipidemia, unspecified; Z68.36 Body mass index [BMI] 36.0-36.9, adult; Z87.891 Personal history of nicotine dependence; Z88.0 Allergy status to penicillin; Z88.1 Allergy status to other antibiotic agents; Z90.49 Acquired absence of other specified parts of digestive tract; Z88.8 Allergy status to other drugs, medicaments and biological substances; Z79.899 Other long term (current) drug therapy
CPT/HCPCS: 43775; S2900; 74240; 80051; 81025; 82310; 82565; 83735; 84100; 84520; 85025; 94640

== ENCOUNTER → 2022-12-05 | Outpatient (CLI) | payer BC ==
[2022-12-05 10:43] VITALS: BP 143/89; PULSE 67; RESP 13; TEMP 97.8; BMI 35.5
--- NOTE | 2022-12-05 10:47 | P.BASOAP ---
Subjective Progress Note Date: 12/05/22 Clinically doing well. Pain control. Reported dark urine or improved oral output. Dressing discontinued. Images of stomach sent. At this time patient not ready return to work. We'll review upon next visit.*Protein shake diet over a clinically doing very well. We'll go over pathology next visit Assessment/Plan Plan: Date: Initial Weight: Initial BMI: Current Weight: Current BMI: Type of Surgery: Total Volume in Band: Previous Volume: Volume Removed: Volume Added: Band Size:
== END ==
LOC: BARWHC3 09:02
PROVIDERS: ATTEND Surgery Plastic and Reconstructive Surgery
DX: Z53.9 Procedure and treatment not carried out, unspecified reason (principal)
CPT/HCPCS: 99211

== ENCOUNTER → 2022-12-10 | Outpatient (CLI) | payer BC ==
[2022-12-10 15:05] VITALS: BP 125/84; PULSE 96; TEMP 98.1; BMI 34.3
--- NOTE | 2022-12-10 15:15 | P.BASOAP ---
Subjective Progress Note Date: 12/10/22 Excellent weight loss. NO GERD. Left side is sore and better. She wants to get back to work. Follow-up 1 month postop. Labs do 1 month follow-up Objective - Vital Signs Vital signs: Vital Signs Temp 98.1 F 12/10/22 14:49 Pulse 96 12/10/22 14:49 Resp BP 125/84 12/10/22 14:49 Pulse Ox FiO2 Intake & Output 12/09/22 12/10/22 12/10/22 18:59 06:59 18:59 Weight 96.615 kg Assessment/Plan Plan: Date: 12/10/22 Initial Weight: Initial BMI: Current Weight: 96.615 kg Current BMI: 34.3 Type of Surgery: Total Volume in Band: Previous Volume: Volume Removed: Volume Added: Band Size:
--- NOTE | 2022-12-10 15:20 | P.PN ---
Progress Note - Text Progress Note Date: 12/10/22 To whom it may concern: Brinda Zamudio is under my medical care. She may return to work to ThursdayDecember 15 with 10 pounds lifting/exertional restriction. Restrictions will be completed January 01, 2023. Regards, Jodie Dickson MD
== END ==
LOC: BARWHC3 13:53
PROVIDERS: ATTEND Surgery Plastic and Reconstructive Surgery
DX: E66.01 Morbid (severe) obesity due to excess calories (principal); Z71.3 Dietary counseling and surveillance; Z88.1 Allergy status to other antibiotic agents; Z88.0 Allergy status to penicillin; Z88.8 Allergy status to other drugs, medicaments and biological substances; Z68.34 Body mass index [BMI] 34.0-34.9, adult
CPT/HCPCS: 97802; 99211

== ENCOUNTER → 2023-01-03 | Outpatient (CLI) | payer BC ==
[2023-01-03 12:37] LABS: Partial Thromboplastin Time 25.6 sec (22.0-30.0); Prothrombin Time 10.8 sec (10.0-12.5)
[2023-01-03 22:58] LABS: HCT 39.7 % (37.2-46.3); HGB 13.5 g/dL (12.0-15.0); MCH 31.2 pg (27.0-32.0); MCV 91.7 FL (80.0-97.0); Mean Platelet Volume 10.9 FL (9.5-12.2); NRBC Per 100 WBC 0 X 10*3/uL (0.00-0.01); Platelet Count 288 X 10*3/uL (140-440); RBC 4.33 X 10*6/uL (4.10-5.20); RDW 13.2 % (11.5-14.5); WBC 5.96 X 10*3/uL (4.50-10.00)
[2023-01-03 23:41] LABS: ALT 35 U/L (8-44); AST 23 U/L (13-35); Albumin 4.1 g/dL (3.8-4.9); Albumin/Globulin Ratio 1.64 Ratio (1.60-3.17); Alkaline Phosphatase 56 U/L (41-126); BUN/Creat Ratio 20.67 Ratio (12.00-20.00); Blood Urea Nitrogen 12.4 mg/dL (9.0-27.0); Calcium 9.2 mg/dL (8.7-10.3); Carbon Dioxide 22.6 mmol/L (21.6-31.8); Chloride 104 mmol/L (96-109); Chol/HDL Ratio 3.23 Ratio; Globulin 2.5 g/dL (1.6-3.3); Glucose 80 mg/dL (70-110); LDL Cholesterol,Calculated 51.2 mg/dL (0.0-131.0); Magnesium 2.2 mg/dL (1.5-2.4); Phosphorus 3.2 mg/dL (2.4-5.1); Potassium 4.5 mmol/L (3.5-5.5); Prealbumin 18.2 mg/dL (18.0-42.0); Sodium 139 mmol/L (135-145); Total Bilirubin 0.5 mg/dL (0.3-1.2); Total Protein 6.6 g/dL (6.2-8.2); VLDL Calculation 19.24 mg/dL (5.00-40.00)
[2023-01-04 00:14] LABS: % Iron Saturation 20.92 (12.00-45.00); Iron 50 UG/DL (50-170); Total Iron Binding Capacity 239 UG/DL (228-460)
== END | disposition home or self-care (01) ==
LOC: LABWHC1 11:20
PROVIDERS: ATTEND Surgery Plastic and Reconstructive Surgery
DX: E66.01 Morbid (severe) obesity due to excess calories (principal); D50.8 Other iron deficiency anemias; E44.0 Moderate protein-calorie malnutrition; E44.1 Mild protein-calorie malnutrition; E54 Ascorbic acid deficiency; E45 Retarded development following protein-calorie malnutrition; E55.9 Vitamin D deficiency, unspecified; K74.1 Hepatic sclerosis; N19 Unspecified kidney failure; T56.894A Toxic effect of other metals, undetermined, initial encounter; K50.90 Crohn's disease, unspecified, without complications
CPT/HCPCS: 36415; 80053; 80061; 82306; 82525; 82607; 82728; 82746; 83036; 83540; 83550; 83735; 83970; 84100; 84134; 84255; 84425; 84443; 84590; 84630; 85027; 85610; 85730

== ENCOUNTER → 2023-07-15 | Outpatient (CLI) | payer BC ==
--- NOTE | 2023-07-15 16:55 | P.BASOAP ---
Subjective Progress Note Date: 07/15/23 She has much energy and runs. No heartburn. She is off medications. Recommend checking blood pressure at home. She is 6 months out and lost much weight. No heartburn. She has worsening skin and back problems. Has troubles with grooming. Uses prescribed powders. Rash along belly button. Objective - Vital Signs Vital signs: Intake & Output 07/14/23 07/15/23 07/15/23 18:59 06:59 18:59 Weight 76.657 kg Assessment/Plan Plan: Date: Initial Weight: Initial BMI: Current Weight: 76.657 kg Current BMI: 27.2 Type of Surgery: Total Volume in Band: Previous Volume: Volume Removed: Volume Added: Band Size:
[2023-07-15 17:14] VITALS: BMI 27.2
[2023-07-16 09:16] VITALS: BP 126/79; PULSE 58; RESP 16; TEMP 98.2
== END ==
LOC: BARWHC3 15:57
PROVIDERS: ATTEND Surgery Plastic and Reconstructive Surgery
DX: E66.01 Morbid (severe) obesity due to excess calories (principal); M53.9 Dorsopathy, unspecified; Z71.3 Dietary counseling and surveillance; Z87.891 Personal history of nicotine dependence; Z98.84 Bariatric surgery status; Z90.3 Acquired absence of stomach [part of]; Z68.27 Body mass index [BMI] 27.0-27.9, adult; Z88.1 Allergy status to other antibiotic agents; Z88.0 Allergy status to penicillin; Z88.8 Allergy status to other drugs, medicaments and biological substances
CPT/HCPCS: 97803; 99211

== ENCOUNTER → 2023-12-09 | Outpatient (CLI) | payer BC ==
[2023-12-09 16:51] VITALS: BP 126/78; PULSE 53; RESP 16; TEMP 98.1; BMI 27.1
--- NOTE | 2023-12-09 17:08 | P.BASOAP ---
Subjective Progress Note Date: 12/09/23 Off medications for blood pressure. She is a running 3 - 4 days per week. No joint pain. No heartburn. No dysphagia. Protein 60 to 80 grams. Good BMs. She has a food diary journal. Average calore 900 to 1100 kcal. No furtner weight loss, Get labs, MVI bariatric advantage chewable. Has panniculitis grade 2 skin. Recommend winch operator. Nystatin powder now. She has back pain. Objective - Vital Signs Vital signs: Vital Signs Temp 98.1 F 12/09/23 16:49 Pulse 53 L 12/09/23 16:49 Resp 16 12/09/23 16:49 BP 126/78 12/09/23 16:49 Pulse Ox FiO2 Intake & Output 12/08/23 12/09/23 12/09/23 18:59 06:59 18:59 Weight 76.204 kg Assessment/Plan Plan: Date: 12/09/23 Initial Weight: 123.377 kg Initial BMI: 43.9 Current Weight: 76.204 kg Current BMI: 27.1 Type of Surgery: Total Volume in Band: Previous Volume: Volume Removed: Volume Added: Band Size:
== END ==
LOC: BARWHC3 16:01
PROVIDERS: ATTEND Surgery Plastic and Reconstructive Surgery
DX: E66.01 Morbid (severe) obesity due to excess calories (principal); M79.3 Panniculitis, unspecified; M54.9 Dorsalgia, unspecified; Z68.27 Body mass index [BMI] 27.0-27.9, adult; Z88.0 Allergy status to penicillin; Z88.1 Allergy status to other antibiotic agents
CPT/HCPCS: 99211

== ENCOUNTER → 2024-05-09 | Outpatient (CLI) | payer BC ==
[2024-05-09 11:04] LABS: INR 0.9 (<1.2); Partial Thromboplastin Time 23.5 sec (22.0-30.0); Prothrombin Time 10.4 sec (10.0-12.5)
[2024-05-09 15:10] LABS: HCT 39.2 % (37.2-46.3); HGB 13.2 g/dL (12.0-15.0); MCHC 33.7 g/dL (32.0-37.0); MCV 95.1 FL (80.0-97.0); Mean Platelet Volume 10.1 FL (9.5-12.2); NRBC Per 100 WBC 0 X 10*3/uL (0.00-0.01); Platelet Count 247 X 10*3/uL (140-440); RBC 4.12 X 10*6/uL (4.10-5.20); RDW 12.7 % (11.5-14.5); WBC 6.07 X 10*3/uL (4.50-10.00)
[2024-05-09 16:10] LABS: % Iron Saturation 63.64 (12.00-45.00); ALT 18 U/L (8-44); AST 16 U/L (13-35); Albumin 4.4 g/dL (3.8-4.9); Albumin/Globulin Ratio 1.91 Ratio (1.60-3.17); Alkaline Phosphatase 34 U/L (41-126); BUN/Creat Ratio 16.38 Ratio (12.00-20.00); Blood Urea Nitrogen 13.1 mg/dL (9.0-27.0); Calcium 9.5 mg/dL (8.7-10.3); Carbon Dioxide 25.9 mmol/L (21.6-31.8); Chloride 104 mmol/L (96-109); Chol/HDL Ratio 2.13 Ratio; Globulin 2.3 g/dL (1.6-3.3); Glucose 85 mg/dL (70-110); Iron 182 UG/DL (50-170); LDL Cholesterol,Calculated 57.5 mg/dL (0.0-131.0); Potassium 4.2 mmol/L (3.5-5.5); Sodium 141 mmol/L (135-145); T4, Free (Free Thyroxine) 1.22 ng/dL (0.80-1.80); Total Bilirubin 0.9 mg/dL (0.3-1.2); Total Iron Binding Capacity 286 UG/DL (228-460); Total Protein 6.7 g/dL (6.2-8.2); VLDL Calculation 14.66 mg/dL (5.00-40.00)
[2024-05-09 18:37] LABS: Phosphorus 3.3 mg/dL (2.4-5.1)
[2024-05-10 13:24] LABS: Zinc, Serum 78 ug/dL (60-130)
== END | disposition home or self-care (01) ==
LOC: LABWHC1 10:02
PROVIDERS: ATTEND Surgery Plastic and Reconstructive Surgery
DX: E66.01 Morbid (severe) obesity due to excess calories (principal); K50.90 Crohn's disease, unspecified, without complications; E04.1 Nontoxic single thyroid nodule; E89.1 Postprocedural hypoinsulinemia; D50.8 Other iron deficiency anemias; K91.2 Postsurgical malabsorption, not elsewhere classified; E44.0 Moderate protein-calorie malnutrition; E45 Retarded development following protein-calorie malnutrition; E55.9 Vitamin D deficiency, unspecified; K74.1 Hepatic sclerosis; N19 Unspecified kidney failure; T56.894A Toxic effect of other metals, undetermined, initial encounter
CPT/HCPCS: 36415; 80053; 80061; 82306; 82525; 82607; 82728; 82746; 83036; 83540; 83550; 83735; 83970; 84100; 84255; 84425; 84439; 84443; 84590; 84630; 85027; 85610; 85730